=== PATIENT | female | born 1955 | race Caucasian/White ===

== ENCOUNTER 2016-05-13 12:00 | Inpatient (IN) | payer MEDICAID ==
[~2016-05-13] VITALS: Ht 170.2 cm; Wt 82.7 kg
[~2016-05-13 12:00] MED LIST: AML5T PO; ASPI-231 PO; ATOR40TA52 PO; COLCPOW2 PO; DOC100C PO; ENA10T PO; FERR325T PO; LEV100T PO; LEVO-140 PO; MET50T PO; PANT40T PO
[2016-05-13] MEDS ORDERED: SODIUM CHLORIDE 0.9% 1,000 ML IV ONE (12:10)
[2016-05-13] MEDS ORDERED: MORPHINE SULF INJ 2 MG/ML SYRINGE 1ML IV ONE (12:15)
[2016-05-13] MEDS ORDERED: ONDANSETRON HCL 4 MG/2 ML VIAL IV ONE (12:15)
[2016-05-13 12:51] LABS: Basophils # (auto) 0 uL; Basophils % (auto) 0.1 % (0.0-2.0); Eosinophils # (auto) 0 uL; Eosinophils % (auto) 0.3 % (0.0-7.0); Hematocrit 42.1 % (36.0-46.0); Hemoglobin 13.8 g/dL (12.2-16.2); Lymphocytes # (auto) 1.4 uL; Lymphocytes % (auto) 11.7 % (10.0-50.0); Mean Corpuscular Hemoglobin 31.8 pg (28.0-32.0); Mean Corpuscular Hgb Conc. 32.8 g/dL (32.0-36.0); Mean Corpuscular Volume 96.8 fL (80.0-100.0); Mean Platelet Volume 8.4 fL (7.4-10.4); Monocytes # (auto) 0.7 uL; Monocytes % (auto) 5.4 % (0.0-12.0); Neutrophils # (auto) 10.2 uL; Neutrophils % (auto) 82.5 % (37.0-80.0); Platelet Count (auto) 235 10^3/uL (140-450); Red Cell Distribution Width 13.7 % (11.6-16.0); White Blood Cell 12.3 10^3/uL (4.4-10.8)
[2016-05-13] MEDS ORDERED: HYDROmorphone HCL 2 MG/ML VL IV ONE (13:00)
[2016-05-13 13:04] LABS: Albumin 4.2 g/dL (3.4-5.0); BUN/Creatinine Ratio 19.5; Bilirubin, Total 0.4 mg/dL (0.2-1.0); Calcium 11.4 mg/dL (8.5-10.1); INR 0.97 (0.9-1.15); Magnesium 1.8 mg/dL (1.6-2.6); Partial Thromboplastin Time 22.9 sec (22.64-33.71); Potassium 4.6 mmol/L (3.5-5.1); Total Protein 7.7 g/dL (6.4-8.2)
[2016-05-13 13:10] LABS: B-Type Natriuretic Peptide 27.07 pg/mL (0-100)
[2016-05-13] MEDS ORDERED: HYDROcodone-ACET 5/325MG TAB PO PRN (13:15)
[2016-05-13] MEDS ORDERED: TEMAZEPAM 15 MG CAP PO PRN (13:15)
[2016-05-13] MEDS ORDERED: ACETAMINOPHEN 500 MG TAB PO PRN (13:15)
[2016-05-13] MEDS ORDERED: NITROGLYCERIN 0.4 MG SL TAB SL PRN (13:15)
[2016-05-13] MEDS ORDERED: LACTULOSE 20Gm/30ML SOLN PO PRN (13:15)
[2016-05-13] MEDS ORDERED: ENOXAPARIN SOD 40 MG/0.4 ML SYRINGE SC ONE (13:30)
[2016-05-13] MEDS ORDERED: ENALAPRIL MALEATE 10 MG TAB PO ONE (13:30)
[2016-05-13] MEDS ORDERED: NITROGLYCERIN 0.2MG/HR TOPICAL PATCH TD ONE (13:30)
[2016-05-13] MEDS ORDERED: ASPirin 81 mg TAB PO ONE (13:30)
[2016-05-13 13:38] LABS: Temperature: 22.5 C (20.0-25.0)
[2016-05-13] MEDS: LORazepam 0.5 MG TAB PO PRN (14:26)
[2016-05-13 16:00] VITALS: BP 110/68
[2016-05-13] MEDS: HYDROmorphone HCL 2 MG/ML VL IV PRN ×2 (17:21→21:55)
[2016-05-13] MEDS: ATORVASTATIN 20 MG TAB PO SCH (21:54)
[2016-05-13] MEDS: METOPROLOL TARTRATE 25 MG TAB PO SCH (21:54)
[2016-05-13] MEDS: PROMETHAZINE HCL 25 MG/ML 1ML IV PRN (21:55)
[2016-05-14] MEDS: LORazepam 0.5 MG TAB PO PRN ×3 (00:32→21:39)
[2016-05-14 04:38] VITALS: BP 125/87
[2016-05-14 06:03] LABS: Cholesterol 159 mg/dL (<200); HDL Cholesterol 34 mg/dL (40-59); Triglycerides 506 mg/dL (<150)
[2016-05-14] MEDS: PROMETHAZINE HCL 25 MG/ML 1ML IV PRN ×3 (07:03→18:10)
[2016-05-14] MEDS: HYDROmorphone HCL 2 MG/ML VL IV PRN ×3 (07:03→18:09)
[2016-05-14 09:00] VITALS: BP 106/60
[2016-05-14] MEDS: ENOXAPARIN SOD 40 MG/0.4 ML SYRINGE SC SCH (09:22)
[2016-05-14] MEDS: METOPROLOL TARTRATE 25 MG TAB PO SCH ×2 (09:22→21:39)
[2016-05-14] MEDS: ENALAPRIL MALEATE 10 MG TAB PO SCH (09:23)
[2016-05-14] MEDS: NITROGLYCERIN 0.2MG/HR TOPICAL PATCH TD SCH (09:23)
[2016-05-14] MEDS: ASPirin 81 mg TAB PO SCH (09:24)
[2016-05-14 12:50] VITALS: BP 100/60
[2016-05-14] MEDS ORDERED: PANTOPRAZOLE 40 MG TAB PO ONE (13:15)
[2016-05-14] MEDS: SODIUM CHLORIDE 0.9% 1,000 ML IV SCH (13:36)
[2016-05-14 17:00] VITALS: BP 123/69
[2016-05-14] MEDS: ATORVASTATIN 20 MG TAB PO SCH (21:39)
[2016-05-14 22:00] VITALS: BP 192/98
[2016-05-15] MEDS: PROMETHAZINE HCL 25 MG/ML 1ML IV PRN ×2 (02:42→21:20)
[2016-05-15] MEDS: HYDROmorphone HCL 2 MG/ML VL IV PRN ×5 (02:43→20:12)
[2016-05-15] MEDS: SODIUM CHLORIDE 0.9% 1,000 ML IV SCH ×2 (02:43→11:08)
[2016-05-15 05:14] LABS: Basophils # (auto) 0 uL; Basophils % (auto) 0.1 % (0.0-2.0); Eosinophils # (auto) 0.1 uL; Eosinophils % (auto) 2.4 % (0.0-7.0); Hematocrit 30.7 % (36.0-46.0); Hemoglobin 10.3 g/dL (12.2-16.2); Lymphocytes % (auto) 33.8 % (10.0-50.0); Mean Corpuscular Hemoglobin 32.1 pg (28.0-32.0); Mean Corpuscular Hgb Conc. 33.5 g/dL (32.0-36.0); Mean Corpuscular Volume 95.6 fL (80.0-100.0); Mean Platelet Volume 8.1 fL (7.4-10.4); Monocytes # (auto) 0.7 uL; Monocytes % (auto) 11.7 % (0.0-12.0); Platelet Count (auto) 189 10^3/uL (140-450); Red Cell Distribution Width 13.1 % (11.6-16.0); White Blood Cell 5.9 10^3/uL (4.4-10.8)
[2016-05-15 05:23] VITALS: BP 120/66
[2016-05-15 05:33] LABS: Calcium 10.1 mg/dL (8.5-10.1); Potassium 4.6 mmol/L (3.5-5.1)
[2016-05-15 05:40] LABS: BUN/Creatinine Ratio 25.2; Magnesium 1.6 mg/dL (1.6-2.6)
[2016-05-15] MEDS ORDERED: LEVOTHYROXINE SODIUM 50 MCG TAB PO SCH (07:00)
[2016-05-15] MEDS: METOPROLOL TARTRATE 25 MG TAB PO SCH ×2 (08:43→21:16)
[2016-05-15] MEDS: ENALAPRIL MALEATE 10 MG TAB PO SCH ×2 (08:43→21:17)
[2016-05-15] MEDS: NITROGLYCERIN 0.2MG/HR TOPICAL PATCH TD SCH (08:44)
[2016-05-15] MEDS ORDERED: NITROGLYCERIN 0.4 MG SL TAB SL ONE (08:56)
[2016-05-15 09:07] VITALS: BP 123/65
[2016-05-15] MEDS ORDERED: MORPHINE SULF INJ 2 MG/ML SYRINGE 1ML IV PRN ×2 (09:15→14:45)
[2016-05-15] MEDS ORDERED: NITROGLYCERIN 0.4 MG SL TAB SL PRN (09:15)
[2016-05-15] MEDS: ASPirin 81 mg TAB PO SCH (10:30)
[2016-05-15] MEDS: ENOXAPARIN SOD 40 MG/0.4 ML SYRINGE SC SCH (10:30)
[2016-05-15] MEDS: PANTOPRAZOLE 40 MG TAB PO SCH (10:31)
[2016-05-15] MEDS ORDERED: MAGNESIUM SULFATE 1GM/100ML 100 ML IV ONE (11:15)
[2016-05-15 12:40] VITALS: BP 124/79
[2016-05-15] MEDS ORDERED: MORPHINE SULF INJ 2 MG/ML SYRINGE 1ML ONE (14:37)
[2016-05-15] MEDS: FERROUS SULFATE 325 MG TAB PO SCH ×2 (16:09→17:44)
[2016-05-15 16:49] VITALS: BP 138/81
[2016-05-15] MEDS: LORazepam 0.5 MG TAB PO PRN (20:12)
[2016-05-15 21:22] VITALS: BP 142/84
[2016-05-15] MEDS ORDERED: ATORVASTATIN 20 MG TAB PO SCH (22:00)
[2016-05-16] MEDS: HYDROmorphone HCL 2 MG/ML VL IV PRN ×3 (00:52→09:55)
[2016-05-16] MEDS: LORazepam 0.5 MG TAB PO PRN (04:03)
[2016-05-16 04:11] VITALS: BP 159/89
[2016-05-16] MEDS: SODIUM CHLORIDE 0.9% 1,000 ML IV SCH (05:04)
[2016-05-16] MEDS: PROMETHAZINE HCL 25 MG/ML 1ML IV PRN (05:05)
[2016-05-16 06:47] LABS: Hematocrit 31.2 % (36.0-46.0); Hemoglobin 10.5 g/dL (12.2-16.2)
[2016-05-16] MEDS ORDERED: LEVOTHYROXINE SODIUM 50 MCG TAB PO SCH (07:00)
[2016-05-16 07:08] LABS: BUN/Creatinine Ratio 26.6; Calcium 9.6 mg/dL (8.5-10.1); Magnesium 1.7 mg/dL (1.6-2.6); Potassium 4.2 mmol/L (3.5-5.1)
[2016-05-16] MEDS: FERROUS SULFATE 325 MG TAB PO SCH (08:00)
[2016-05-16 08:20] VITALS: BP 144/75
[2016-05-16] MEDS: NITROGLYCERIN 0.2MG/HR TOPICAL PATCH TD SCH (09:54)
[2016-05-16] MEDS: METOPROLOL TARTRATE 25 MG TAB PO SCH (09:55)
[2016-05-16] MEDS: ASPirin 81 mg TAB PO SCH (09:55)
[2016-05-16] MEDS: ENOXAPARIN SOD 40 MG/0.4 ML SYRINGE SC SCH (09:55)
[2016-05-16] MEDS: PANTOPRAZOLE 40 MG TAB PO SCH (09:55)
[2016-05-16] MEDS: ENALAPRIL MALEATE 10 MG TAB PO SCH (09:55)
[2016-05-16] MEDS ORDERED: MAGNESIUM SULFATE 1GM/100ML 100 ML IV ONE (12:30)
[2016-05-16] MEDS ORDERED: LEV50T PO (12:34)
[2016-05-16] MEDS ORDERED: [UNRECOGNIZED DRUG - CODE] TD (12:34)
[2016-05-16 13:00] VITALS: BP 112/56
== END 2016-05-16 16:15 | disposition home health service (06) | DRG 198 ==
LOC: EDBD 12:00 → ER 12:03 → TELE 12:04 → TELE-EAST 15:39
PROVIDERS: ADMIT Internal Medicine; ATTEND Internal Medicine
DX: I25.110 Atherosclerotic heart disease of native coronary artery with unstable angina pectoris (principal); N17.0 Acute kidney failure with tubular necrosis; I13.0 Hypertensive heart and chronic kidney disease with heart failure and stage 1 through stage 4 chronic kidney disease, or unspecified chronic kidney disease; I50.32 Chronic diastolic (congestive) heart failure; N18.3 Chronic kidney disease, stage 3 (moderate); I16.1 Hypertensive emergency; E03.9 Hypothyroidism, unspecified; N18.9 Chronic kidney disease, unspecified; M81.0 Age-related osteoporosis without current pathological fracture; E78.5 Hyperlipidemia, unspecified; E83.52 Hypercalcemia; D72.829 Elevated white blood cell count, unspecified; J45.909 Unspecified asthma, uncomplicated; K29.60 Other gastritis without bleeding; Z77.22 Contact with and (suspected) exposure to environmental tobacco smoke (acute) (chronic); Z90.89 Acquired absence of other organs; I25.2 Old myocardial infarction; Z88.6 Allergy status to analgesic agent; Z82.49 Family history of ischemic heart disease and other diseases of the circulatory system; Z95.1 Presence of aortocoronary bypass graft; Z84.89 Family history of other specified conditions
CPT/HCPCS: 36415; 71010; 80048; 80053; 80061; 82550; 82962; 83735; 83880; 84443; 84484; 85014; 85018; 85025; 85049; 85379; 85610; 85652; 85730; 86141; 93005; 94761; 96361; 96372; 96374; 96375; G0434; J2405

== ENCOUNTER 2016-07-13 21:14 | Inpatient (IN) | payer MEDICAID ==
[~2016-07-13] VITALS: Ht 170.2 cm; Wt 82.1 kg
[~2016-07-13 21:14] MED LIST changes: -ASPI-231 PO; -LEV100T PO; +LEV50T PO; -LEVO-140 PO; +[UNRECOGNIZED DRUG - CODE] TD
[2016-07-13 22:14] LABS: Basophils # (auto) 0 uL; Basophils % (auto) 0.3 % (0.0-2.0); Eosinophils # (auto) 0.2 uL; Hematocrit 36.3 % (36.0-46.0); Hemoglobin 12.2 g/dL (12.2-16.2); Lymphocytes # (auto) 1.6 uL; Lymphocytes % (auto) 18.9 % (10.0-50.0); Mean Corpuscular Hemoglobin 32.7 pg (28.0-32.0); Mean Corpuscular Hgb Conc. 33.6 g/dL (32.0-36.0); Mean Corpuscular Volume 97.3 fL (80.0-100.0); Monocytes # (auto) 0.6 uL; Monocytes % (auto) 6.6 % (0.0-12.0); Neutrophils # (auto) 6.2 uL; Neutrophils % (auto) 72.2 % (37.0-80.0); Platelet Count (auto) 289 10^3/uL (140-450); Red Cell Distribution Width 13.7 % (11.6-16.0); White Blood Cell 8.5 10^3/uL (4.4-10.8)
[2016-07-13 22:34] LABS: Albumin 3.6 g/dL (3.4-5.0); Calcium 10.4 mg/dL (8.5-10.1); Potassium 4.7 mmol/L (3.5-5.1)
[2016-07-13 22:38] LABS: Bilirubin, Total 0.2 mg/dL (0.2-1.0); Total Protein 7.2 g/dL (6.4-8.2)
[2016-07-13 22:41] LABS: B-Type Natriuretic Peptide 29.42 pg/mL (0-100); Temperature: 23.5 C (20.0-25.0)
[2016-07-14] MEDS ORDERED: ONDANSETRON HCL 4 MG/2 ML VIAL IV ONE (00:30)
[2016-07-14] MEDS ORDERED: MORPHINE SULFATE 4 MG/ML SYRG IV ONE (00:30)
[2016-07-14] MEDS ORDERED: ENOXAPARIN SOD 80 MG/0.8ML SYRINGE SC ONE (00:30)
[2016-07-14] MEDS ORDERED: NITROGLYCERIN 2% OINT 1GM PKG TD ONE (00:30)
[2016-07-14] MEDS ORDERED: LORazepam 2MG/ML-1ML VIAL IV ONE (02:00)
[2016-07-14 03:16] LABS: INR 0.95 (0.9-1.15); Prothrombin Time 9.8 sec (9.37-12.3)
[2016-07-14] MEDS ORDERED: ISOS60TA24 PO (04:09)
[2016-07-14] MEDS ORDERED: LORazepam 0.5 MG TAB PO ONE (04:30)
[2016-07-14] MEDS ORDERED: TEMAZEPAM 15 MG CAP PO PRN (05:45)
[2016-07-14] MEDS ORDERED: ONDANSETRON HCL 4 MG/2 ML VIAL IV PRN (05:45)
[2016-07-14] MEDS ORDERED: NITROGLYCERIN 0.4 MG SL TAB SL PRN (05:45)
[2016-07-14] MEDS ORDERED: HYDROcodone-ACET 5/325MG TAB PO PRN (05:45)
[2016-07-14] MEDS ORDERED: ACETAMINOPHEN 325 MG TAB PO PRN (05:45)
[2016-07-14] MEDS ORDERED: CLOPIDOGREL BISULFATE 75 MG TAB PO ONE (05:45)
[2016-07-14] MEDS: MORPHINE SULF INJ 2 MG/ML SYRINGE 1ML IV PRN ×5 (06:34→20:32)
[2016-07-14] MEDS: LEVOTHYROXINE SODIUM 50 MCG TAB PO SCH (07:20)
[2016-07-14 09:00] VITALS: BP 157/95
[2016-07-14] MEDS: METOPROLOL TARTRATE 50 MG TAB PO SCH ×2 (10:00→22:06)
[2016-07-14] MEDS ORDERED: ENOXAPARIN SOD 80 MG/0.8ML SYRINGE SC SCH (10:00)
[2016-07-14] MEDS ORDERED: METOPROLOL TARTRATE 25 MG TAB PO SCH (10:00)
[2016-07-14] MEDS: ASPirin 81 mg TAB PO SCH (10:01)
[2016-07-14] MEDS: ISOSORBIDE MONONITRATE 60 MG TAB PO SCH (10:01)
[2016-07-14] MEDS: ENALAPRIL MALEATE 10 MG TAB PO SCH (10:02)
[2016-07-14] MEDS: CLOPIDOGREL BISULFATE 75 MG TAB PO SCH (10:02)
[2016-07-14] MEDS: amLODIPine BESYLATE 5 MG TAB PO SCH (10:03)
[2016-07-14] MEDS: PANTOPRAZOLE 40 MG TAB PO SCH (10:03)
[2016-07-14 12:37] VITALS: BP 157/98
[2016-07-14 13:00] VITALS: BP 152/87
[2016-07-14 17:00] VITALS: BP 133/71
[2016-07-14] MEDS: LORazepam 0.5 MG TAB PO PRN (18:08)
[2016-07-14 20:20] VITALS: BP 116/77
[2016-07-14] MEDS ORDERED: ATORVASTATIN 20 MG TAB PO SCH (22:00)
[2016-07-14 22:17] VITALS: BP 116/77
[2016-07-14] MEDS: HYDROcodone-ACET 10/325MG TAB PO PRN (23:54)
[2016-07-15] MEDS: MORPHINE SULF INJ 2 MG/ML SYRINGE 1ML IV PRN ×3 (02:07→10:58)
[2016-07-15] MEDS: HYDROcodone-ACET 10/325MG TAB PO PRN ×2 (04:27→14:01)
[2016-07-15 05:04] LABS: Basophils # (auto) 0 uL; Basophils % (auto) 0.2 % (0.0-2.0); Eosinophils # (auto) 0.2 uL; Eosinophils % (auto) 1.8 % (0.0-7.0); Hematocrit 36.1 % (36.0-46.0); Hemoglobin 12.2 g/dL (12.2-16.2); Lymphocytes # (auto) 1.7 uL; Lymphocytes % (auto) 19.1 % (10.0-50.0); Mean Corpuscular Hemoglobin 32.6 pg (28.0-32.0); Mean Corpuscular Hgb Conc. 33.7 g/dL (32.0-36.0); Mean Corpuscular Volume 96.8 fL (80.0-100.0); Monocytes # (auto) 0.8 uL; Monocytes % (auto) 9.5 % (0.0-12.0); Neutrophils % (auto) 69.4 % (37.0-80.0); Platelet Count (auto) 302 10^3/uL (140-450); Red Cell Distribution Width 13.4 % (11.6-16.0); White Blood Cell 8.7 10^3/uL (4.4-10.8)
[2016-07-15 05:10] VITALS: BP 131/82
[2016-07-15 05:17] LABS: Albumin 3.5 g/dL (3.4-5.0); Calcium 10.3 mg/dL (8.5-10.1); Potassium 4.4 mmol/L (3.5-5.1)
[2016-07-15 05:20] LABS: Bilirubin, Total 0.2 mg/dL (0.2-1.0); Total Protein 6.9 g/dL (6.4-8.2)
[2016-07-15] MEDS: LEVOTHYROXINE SODIUM 50 MCG TAB PO SCH (06:38)
[2016-07-15] MEDS: LORazepam 0.5 MG TAB PO PRN (08:14)
[2016-07-15 09:00] VITALS: BP 123/65
[2016-07-15] MEDS: PANTOPRAZOLE 40 MG TAB PO SCH (09:51)
[2016-07-15] MEDS: ISOSORBIDE MONONITRATE 60 MG TAB PO SCH (09:51)
[2016-07-15] MEDS: CLOPIDOGREL BISULFATE 75 MG TAB PO SCH (09:51)
[2016-07-15] MEDS: amLODIPine BESYLATE 5 MG TAB PO SCH (09:52)
[2016-07-15] MEDS: METOPROLOL TARTRATE 50 MG TAB PO SCH (09:52)
[2016-07-15] MEDS: ENALAPRIL MALEATE 10 MG TAB PO SCH (09:53)
[2016-07-15] MEDS: ASPirin 81 mg TAB PO SCH (09:56)
[2016-07-15] MEDS ORDERED: ENOXAPARIN SOD 40 MG/0.4 ML SYRINGE SC SCH (10:00)
[2016-07-15 13:00] VITALS: BP 122/80
[2016-07-15 13:20] VITALS: BP 122/80
== END 2016-07-15 14:30 | disposition home or self-care (01) | DRG 206 ==
LOC: ER 22:07 → TELE 22:08 → TELE-WESTW 07-14 08:27
PROVIDERS: ADMIT Nurse Practitioner; ATTEND Nurse Practitioner
DX: T82.898A Other specified complication of vascular prosthetic devices, implants and grafts, initial encounter (principal); I13.0 Hypertensive heart and chronic kidney disease with heart failure and stage 1 through stage 4 chronic kidney disease, or unspecified chronic kidney disease; I50.9 Heart failure, unspecified; I25.82 Chronic total occlusion of coronary artery; F17.200 Nicotine dependence, unspecified, uncomplicated; I25.10 Atherosclerotic heart disease of native coronary artery without angina pectoris; Y83.2 Surgical operation with anastomosis, bypass or graft as the cause of abnormal reaction of the patient, or of later complication, without mention of misadventure at the time of the procedure; Z82.49 Family history of ischemic heart disease and other diseases of the circulatory system; J45.909 Unspecified asthma, uncomplicated; I25.2 Old myocardial infarction; N18.9 Chronic kidney disease, unspecified; Z85.9 Personal history of malignant neoplasm, unspecified; Z90.89 Acquired absence of other organs; Z84.89 Family history of other specified conditions; Z83.49 Family history of other endocrine, nutritional and metabolic diseases
CPT/HCPCS: 36415; 71010; 80053; 83880; 84484; 85025; 85379; 85610; 85730; 87081; 93005; 96372; 96374; 96375; 96376; J2405

== ENCOUNTER 2016-09-06 19:30 | Inpatient (IN) | payer MEDICAID ==
[~2016-09-06] VITALS: Ht 165.1 cm; Wt 83.3 kg
[~2016-09-06 19:30] MED LIST changes: +ISOS60TA24 PO
[2016-09-06] MEDS ORDERED: ONDANSETRON HCL 4 MG/2 ML VIAL IV ONE ×2 (20:15→22:45)
[2016-09-06] MEDS ORDERED: MORPHINE SULF INJ 2 MG/ML SYRINGE 1ML IV ONE ×2 (20:15→22:45)
[2016-09-06 21:03] LABS: Basophils # (auto) 0 uL; Basophils % (auto) 0.3 % (0.0-2.0); Eosinophils # (auto) 0.2 uL; Eosinophils % (auto) 1.4 % (0.0-7.0); Hematocrit 37.2 % (36.0-46.0); Hemoglobin 12.3 g/dL (12.2-16.2); Lymphocytes # (auto) 1.2 uL; Lymphocytes % (auto) 10.7 % (10.0-50.0); Mean Corpuscular Hemoglobin 32.8 pg (28.0-32.0); Mean Corpuscular Volume 99.5 fL (80.0-100.0); Mean Platelet Volume 8.1 fL (7.4-10.4); Monocytes # (auto) 0.8 uL; Monocytes % (auto) 6.5 % (0.0-12.0); Neutrophils # (auto) 9.4 uL; Neutrophils % (auto) 81.1 % (37.0-80.0); Platelet Count (auto) 337 10^3/uL (140-450); Red Cell Distribution Width 14.1 % (11.6-16.0); White Blood Cell 11.6 10^3/uL (4.4-10.8)
[2016-09-06 21:21] LABS: Prothrombin Time 9.4 sec (9.37-12.3)
[2016-09-06 21:24] LABS: Albumin 3.5 g/dL (3.4-5.0); BUN/Creatinine Ratio 20.9; Bilirubin, Total 0.2 mg/dL (0.2-1.0); Calcium 10.8 mg/dL (8.5-10.1); Magnesium 2.2 mg/dL (1.6-2.6); Total Protein 7.2 g/dL (6.4-8.2)
[2016-09-06 21:36] LABS: INR 0.87 (0.9-1.15)
[2016-09-06 21:50] LABS: B-Type Natriuretic Peptide 17.53 pg/mL (0-100)
[2016-09-06 21:57] LABS: Temperature: 23.7 C (20.0-25.0)
[2016-09-07] VITALS (9 sets, daily range): BP systolic 82–155; BP diastolic 55–89
[2016-09-07] MEDS ORDERED: NITROGLYCERIN 0.4 MG SL TAB SL ONE ×2 (00:10→00:15)
[2016-09-07] MEDS ORDERED: HYDROmorphone HCL 2 MG/ML VL IV ONE (00:30)
[2016-09-07] MEDS ORDERED: ACETAMINOPHEN 325 MG TAB PO PRN (01:00)
[2016-09-07] MEDS ORDERED: FUROSEMIDE 20 MG/2 ML VIAL IV ONE (01:00)
[2016-09-07] MEDS ORDERED: DOCUSATE SOD 100 MG CAP PO PRN (01:00)
[2016-09-07] MEDS ORDERED: ONDANSETRON HCL 4 MG/2 ML VIAL IV PRN (01:00)
[2016-09-07 03:40] LABS: Urine Bilirubin Negative (Negative); Urine Blood Negative /uL (Negative); Urine Color Yellow (Yellow); Urine Glucose Normal (Normal); Urine Ketone Negative (Negative); Urine Nitrite Negative (Negative); Urine RBC <1 /hpf (0 - 4); Urine Squamous Epithelial Cell FEW /hpf (<5); Urine Urobilinogen Normal (Negative); Urine pH 7.5 (5.0-8.0)
[2016-09-07] MEDS: MORPHINE SULF INJ 2 MG/ML SYRINGE 1ML IV PRN ×4 (04:34→22:25)
[2016-09-07] MEDS ORDERED: SODIUM CHLORIDE 0.9% 500 ML IV ONE (05:30)
[2016-09-07] MEDS: SODIUM CHLOR 0.9% PF (SALINE LOCK) 10ML VIAL IV SCH ×3 (05:43→21:26)
[2016-09-07] MEDS ORDERED: FAMOTIDINE 20 MG TAB PO SCH (10:00)
[2016-09-07] MEDS: NITROGLYCERIN 0.2MG/HR TOPICAL PATCH TD SCH (10:00)
[2016-09-07] MEDS: ASPirin 81 mg TAB PO SCH (10:44)
[2016-09-07] MEDS ORDERED: FUROSEMIDE 40 MG TAB PO ONE (18:15)
[2016-09-07] MEDS ORDERED: LEVOTHYROXINE SODIUM 50 MCG TAB PO ONE (18:15)
[2016-09-07] MEDS: ceFAZolin 1GM/50ML D5W 50 ML IV SCH (18:37)
[2016-09-07] MEDS: ATORVASTATIN 20 MG TAB PO SCH (21:20)
[2016-09-07] MEDS: METOPROLOL TARTRATE 25 MG TAB PO SCH (21:21)
[2016-09-07] MEDS ORDERED: ceFAZolin 1GM/50ML D5W 50 ML IV SCH (22:00)
[2016-09-08] MEDS: ALBUTEROL SULF 2.5 MG/0.5ML(0.5%) NEB SOLN NEB SCH ×4 (00:10→18:10)
[2016-09-08] MEDS: IPRATROPIUM BROM 0.5 MG/2.5ML INH SOL NEB SCH ×4 (00:10→18:30)
[2016-09-08] MEDS: TEMAZEPAM 15 MG CAP PO PRN ×2 (02:30→23:31)
[2016-09-08] MEDS: MORPHINE SULF INJ 2 MG/ML SYRINGE 1ML IV PRN ×4 (02:31→17:13)
[2016-09-08 05:00] VITALS: BP 111/69
[2016-09-08] MEDS: SODIUM CHLOR 0.9% PF (SALINE LOCK) 10ML VIAL IV SCH ×3 (05:43→22:18)
[2016-09-08] MEDS: ceFAZolin 1GM/50ML D5W 50 ML IV SCH ×2 (06:05→18:48)
[2016-09-08] MEDS: LEVOTHYROXINE SODIUM 50 MCG TAB PO SCH (06:35)
[2016-09-08 07:17] LABS: Albumin 3.3 g/dL (3.4-5.0); Calcium 10.1 mg/dL (8.5-10.1); Potassium 4.3 mmol/L (3.5-5.1)
[2016-09-08 07:20] LABS: Bilirubin, Total 0.5 mg/dL (0.2-1.0); Total Protein 6.5 g/dL (6.4-8.2)
[2016-09-08 07:29] LABS: Basophils # (auto) 0 uL; Basophils % (auto) 0.2 % (0.0-2.0); Eosinophils # (auto) 0.2 uL; Hematocrit 33.5 % (36.0-46.0); Hemoglobin 11.5 g/dL (12.2-16.2); Lymphocytes # (auto) 1.2 uL; Lymphocytes % (auto) 12.1 % (10.0-50.0); Mean Corpuscular Hemoglobin 33.7 pg (28.0-32.0); Mean Corpuscular Hgb Conc. 34.2 g/dL (32.0-36.0); Mean Corpuscular Volume 98.4 fL (80.0-100.0); Mean Platelet Volume 8.2 fL (7.4-10.4); Monocytes % (auto) 10.3 % (0.0-12.0); Neutrophils # (auto) 7.7 uL; Neutrophils % (auto) 75.4 % (37.0-80.0); Platelet Count (auto) 250 10^3/uL (140-450); Red Cell Distribution Width 12.3 % (11.6-16.0); SUSPECT VIEW TRANSMISSION; White Blood Cell 10.1 10^3/uL (4.4-10.8)
[2016-09-08 08:00] VITALS: BP 117/64
[2016-09-08 08:08] LABS: B-Type Natriuretic Peptide 26.43 pg/mL (0-100); Temperature: 23.3 C (20.0-25.0)
[2016-09-08 09:00] VITALS: BP 120/93
[2016-09-08] MEDS: METOPROLOL TARTRATE 25 MG TAB PO SCH ×2 (09:36→22:21)
[2016-09-08] MEDS: FAMOTIDINE 20 MG TAB PO SCH (09:37)
[2016-09-08] MEDS: ASPirin 81 mg TAB PO SCH (09:37)
[2016-09-08] MEDS: NITROGLYCERIN 0.2MG/HR TOPICAL PATCH TD SCH (09:38)
[2016-09-08] MEDS ORDERED: NITROGLYCERIN 0.4MG/HR TOPICAL PATCH TD SCH (10:00)
[2016-09-08 13:00] VITALS: BP 132/76
[2016-09-08] MEDS: FUROSEMIDE 40 MG TAB PO SCH (15:22)
[2016-09-08 16:48] VITALS: BP 133/75
[2016-09-08] MEDS ORDERED: methylPREDNISolone SOD SUCC 40 MG/ML VL IV ONE (19:30)
[2016-09-08 22:09] VITALS: BP 128/71
[2016-09-08] MEDS: methylPREDNISolone SOD SUCC 40 MG/ML VL IV SCH (22:19)
[2016-09-08] MEDS: ATORVASTATIN 20 MG TAB PO SCH (22:22)
[2016-09-08] MEDS: DOXYCYCLINE 100 MG TAB/CAP PO SCH (22:22)
[2016-09-09] VITALS (7 sets, daily range): BP systolic 101–155; BP diastolic 69–87
[2016-09-09] MEDS: SODIUM CHLOR 0.9% PF (SALINE LOCK) 10ML VIAL IV SCH ×3 (05:31→21:15)
[2016-09-09] MEDS: HYDROcodone-ACET 7.5/325MG TAB PO PRN ×3 (05:34→20:06)
[2016-09-09] MEDS: LEVOTHYROXINE SODIUM 50 MCG TAB PO SCH (06:43)
[2016-09-09] MEDS: METOPROLOL TARTRATE 25 MG TAB PO SCH ×2 (10:00→21:18)
[2016-09-09] MEDS: methylPREDNISolone SOD SUCC 40 MG/ML VL IV SCH ×2 (10:21→21:15)
[2016-09-09] MEDS: ASPirin 81 mg TAB PO SCH (10:22)
[2016-09-09] MEDS: NITROGLYCERIN 0.2MG/HR TOPICAL PATCH TD SCH (10:23)
[2016-09-09] MEDS: DOXYCYCLINE 100 MG TAB/CAP PO SCH ×2 (10:23→21:15)
[2016-09-09] MEDS: FAMOTIDINE 20 MG TAB PO SCH (10:23)
[2016-09-09] MEDS ORDERED: ALPRAZolam 0.25 MG TAB PO ONE (13:15)
[2016-09-09] MEDS: NITROGLYCERIN 0.4 MG SL TAB SL PRN ×4 (16:29→18:37)
[2016-09-09] MEDS: FUROSEMIDE 40 MG TAB PO SCH (16:50)
[2016-09-09] MEDS: MORPHINE SULF INJ 2 MG/ML SYRINGE 1ML IV PRN (20:27)
[2016-09-09] MEDS: ATORVASTATIN 20 MG TAB PO SCH (21:15)
[2016-09-09] MEDS: ENOXAPARIN SOD 60 MG/0.6 ML SYRINGE SC SCH (21:15)
[2016-09-09] MEDS: TEMAZEPAM 15 MG CAP PO PRN (22:53)
[2016-09-10] MEDS: NITROGLYCERIN 0.4 MG SL TAB SL PRN ×2 (02:51→03:00)
[2016-09-10] MEDS: MORPHINE SULF INJ 2 MG/ML SYRINGE 1ML IV PRN ×2 (03:04→11:14)
[2016-09-10 05:00] VITALS: BP 115/72
[2016-09-10] MEDS: HYDROcodone-ACET 7.5/325MG TAB PO PRN ×2 (05:28→13:21)
[2016-09-10] MEDS: SODIUM CHLOR 0.9% PF (SALINE LOCK) 10ML VIAL IV SCH ×2 (05:29→14:00)
[2016-09-10] MEDS: LEVOTHYROXINE SODIUM 50 MCG TAB PO SCH (06:13)
[2016-09-10 06:31] LABS: Basophils # (auto) 0 uL; Eosinophils # (auto) 0 uL; Hematocrit 33.4 % (36.0-46.0); Hemoglobin 11.5 g/dL (12.2-16.2); Lymphocytes # (auto) 1.4 uL; Lymphocytes % (auto) 7.4 % (10.0-50.0); Mean Corpuscular Hemoglobin 33.9 pg (28.0-32.0); Mean Corpuscular Hgb Conc. 34.4 g/dL (32.0-36.0); Mean Corpuscular Volume 98.5 fL (80.0-100.0); Mean Platelet Volume 8.4 fL (7.4-10.4); Monocytes # (auto) 0.6 uL; Monocytes % (auto) 3.2 % (0.0-12.0); Neutrophils # (auto) 17.1 uL; Neutrophils % (auto) 89.4 % (37.0-80.0); Platelet Count (auto) 353 10^3/uL (140-450); Red Cell Distribution Width 13.3 % (11.6-16.0); White Blood Cell 19.1 10^3/uL (4.4-10.8)
[2016-09-10 07:04] LABS: BUN/Creatinine Ratio 31.5; Calcium 11.2 mg/dL (8.5-10.1); Potassium 4.5 mmol/L (3.5-5.1); Uric Acid 10.5 mg/dL (2.6-6.0)
[2016-09-10 07:25] LABS: B-Type Natriuretic Peptide 108.94 pg/mL (0-100); Temperature: 22.7 C (20.0-25.0)
[2016-09-10 07:34] VITALS: BP 121/71
[2016-09-10 08:00] VITALS: BP 179/86
[2016-09-10] MEDS ORDERED: ENOXAPARIN SOD 60 MG/0.6 ML SYRINGE SC SCH (10:00)
[2016-09-10] MEDS: ENOXAPARIN SOD 60 MG/0.6 ML SYRINGE SC SCH (10:54)
[2016-09-10] MEDS: methylPREDNISolone SOD SUCC 40 MG/ML VL IV SCH (10:54)
[2016-09-10] MEDS: NITROGLYCERIN 0.2MG/HR TOPICAL PATCH TD SCH (10:56)
[2016-09-10] MEDS: ASPirin 81 mg TAB PO SCH (10:57)
[2016-09-10] MEDS: DOXYCYCLINE 100 MG TAB/CAP PO SCH (10:57)
[2016-09-10] MEDS: FAMOTIDINE 20 MG TAB PO SCH (10:58)
[2016-09-10] MEDS: METOPROLOL TARTRATE 25 MG TAB PO SCH (10:59)
[2016-09-10 12:27] VITALS: BP 148/78
[2016-09-10 16:02] VITALS: BP 124/71
[2016-09-10 16:35] VITALS: BP 124/71
== END 2016-09-10 17:15 | disposition home or self-care (01) | DRG 194 ==
LOC: ER 19:30 → TELE 19:32 → TELE-CENTR 09-07 03:47
PROVIDERS: ADMIT Emergency Medicine; ATTEND Internal Medicine
DX: I13.0 Hypertensive heart and chronic kidney disease with heart failure and stage 1 through stage 4 chronic kidney disease, or unspecified chronic kidney disease (principal); J44.1 Chronic obstructive pulmonary disease with (acute) exacerbation; N18.3 Chronic kidney disease, stage 3 (moderate); Z95.1 Presence of aortocoronary bypass graft; I50.33 Acute on chronic diastolic (congestive) heart failure; L03.116 Cellulitis of left lower limb; I25.110 Atherosclerotic heart disease of native coronary artery with unstable angina pectoris; D64.9 Anemia, unspecified; M10.9 Gout, unspecified; E78.5 Hyperlipidemia, unspecified; F17.210 Nicotine dependence, cigarettes, uncomplicated; Z82.49 Family history of ischemic heart disease and other diseases of the circulatory system; Z85.9 Personal history of malignant neoplasm, unspecified; Z83.3 Family history of diabetes mellitus; Z90.89 Acquired absence of other organs
CPT/HCPCS: 36415; 71010; 80048; 80053; 80307; 81001; 83735; 83880; 83970; 84443; 84484; 84550; 85025; 85379; 85610; 85730; 93005; 93306; 94640; 94761; 96372; 96374; 96375; 96376; J0690; J2405

== ENCOUNTER 2017-01-08 17:06 | Inpatient (IN) | payer MEDICAID ==
[~2017-01-08] VITALS: Ht 170.2 cm; Wt 85.3 kg
[2017-01-08 21:32] LABS: Basophils # (auto) 0.1 uL; Basophils % (auto) 0.7 % (0.0-2.0); CONDITION Y; DEFINITIVE SEE PRINTOUT; Eosinophils # (auto) 0.4 uL; Eosinophils % (auto) 5.1 % (0.0-7.0); Hemoglobin 12.6 g/dL (12.2-16.2); Lymphocytes # (auto) 1.8 uL; Lymphocytes % (auto) 22.1 % (10.0-50.0); Mean Corpuscular Hemoglobin 35.4 pg (28.0-32.0); Mean Corpuscular Hgb Conc. 33.9 g/dL (32.0-36.0); Mean Corpuscular Volume 104.3 fL (80.0-100.0); Mean Platelet Volume 9.1 fL (7.4-10.4); Monocytes # (auto) 0.4 uL; Monocytes % (auto) 4.5 % (0.0-12.0); Neutrophils # (auto) 5.4 uL; Neutrophils % (auto) 67.6 % (37.0-80.0); Platelet Count (auto) 286 10^3/uL (140-450); Red Cell Distribution Width 15.2 % (11.6-16.0); White Blood Cell 7.9 10^3/uL (4.4-10.8)
[2017-01-08 21:37] LABS: Albumin 3.9 g/dL (3.4-5.0); BUN/Creatinine Ratio 19.7; Calcium 11.6 mg/dL (8.5-10.1); Magnesium 2.1 mg/dL (1.6-2.6); Potassium 4.9 mmol/L (3.5-5.1)
[2017-01-08 21:45] LABS: Bilirubin, Total 0.2 mg/dL (0.2-1.0); Total Protein 7.4 g/dL (6.4-8.2)
[2017-01-08 21:48] LABS: B-Type Natriuretic Peptide 23.12 pg/mL (0-100)
[2017-01-08 22:02] LABS: Macrocytosis Slight; Platelet Estimate Adequate
[2017-01-08 22:54] LABS: Urine Bilirubin Negative (Negative); Urine Blood Negative /uL (Negative); Urine Color Yellow (Yellow); Urine Glucose Normal (Normal); Urine Ketone Negative (Negative); Urine Nitrite Negative (Negative); Urine RBC 1 /hpf (0 - 4); Urine Squamous Epithelial Cell FEW /hpf (<5); Urine Urobilinogen Normal (Negative)
[2017-01-08] MEDS ORDERED: ENOXAPARIN SOD 100 MG/1 ML SYRINGE SC ONE (23:15)
[2017-01-08] MEDS ORDERED: HYDROcodone-ACET 5/325MG TAB PO ONE (23:45)
[2017-01-09] MEDS ORDERED: ONDANSETRON HCL 4 MG/2 ML VIAL IV PRN (00:15)
[2017-01-09] MEDS ORDERED: CLOPIDOGREL BISULFATE 75 MG TAB PO ONE (00:15)
[2017-01-09] MEDS ORDERED: ACETAMINOPHEN 325 MG TAB PO PRN (00:15)
[2017-01-09] MEDS ORDERED: NITROGLYCERIN 0.4 MG SL TAB SL PRN (00:15)
[2017-01-09] MEDS ORDERED: KETOROLAC TROMETH 30 MG/ML 1ML VIAL IV ONE ×2 (05:30)
[2017-01-09] MEDS: LEVOTHYROXINE SODIUM 50 MCG TAB PO SCH (07:22)
[2017-01-09] MEDS ORDERED: METOPROLOL TARTRATE 25 MG TAB PO SCH (10:00)
[2017-01-09] MEDS ORDERED: ASPirin 81 mg TAB PO SCH (10:00)
[2017-01-09] MEDS ORDERED: ENOXAPARIN SOD 80 MG/0.8ML SYRINGE SC SCH (10:00)
[2017-01-09] MEDS: PANTOPRAZOLE 40 MG TAB PO SCH (10:19)
[2017-01-09] MEDS: ISOSORBIDE MONONITRATE 60 MG TAB PO SCH (10:19)
[2017-01-09] MEDS: amLODIPine BESYLATE 5 MG TAB PO SCH (10:19)
[2017-01-09] MEDS: CLOPIDOGREL BISULFATE 75 MG TAB PO SCH (10:19)
[2017-01-09] MEDS: ENALAPRIL MALEATE 10 MG TAB PO SCH ×2 (10:20→22:15)
[2017-01-09 14:00] VITALS: BP 141/92
[2017-01-09] MEDS ORDERED: HYDROmorphone HCL 2 MG/ML VL IV ONE (14:45)
[2017-01-09] MEDS ORDERED: NITROGLYCERIN 0.2MG/HR TOPICAL PATCH TD ONE (14:45)
[2017-01-09 16:57] VITALS: BP 136/71
[2017-01-09] MEDS: HYDROcodone-ACET 5/325MG TAB PO PRN (20:43)
[2017-01-09] MEDS ORDERED: ENOXAPARIN SOD 100 MG/1 ML SYRINGE SC SCH (21:00)
[2017-01-09] MEDS ORDERED: ATORVASTATIN 20 MG TAB PO SCH (22:00)
[2017-01-09 22:21] VITALS: BP 121/74
[2017-01-09] MEDS ORDERED: TEMAZEPAM 15 MG CAP PO ONE (23:00)
[2017-01-10] MEDS: HYDROcodone-ACET 5/325MG TAB PO PRN ×3 (04:42→13:48)
[2017-01-10 04:57] VITALS: BP 118/70
[2017-01-10 06:18] LABS: Basophils # (auto) 0.1 uL; Basophils % (auto) 0.9 % (0.0-2.0); Eosinophils # (auto) 0.3 uL; Hematocrit 35.9 % (36.0-46.0); Hemoglobin 12.2 g/dL (12.2-16.2); Lymphocytes # (auto) 1.4 uL; Lymphocytes % (auto) 22.4 % (10.0-50.0); Mean Corpuscular Hemoglobin 36.1 pg (28.0-32.0); Mean Corpuscular Hgb Conc. 34.1 g/dL (32.0-36.0); Mean Corpuscular Volume 105.7 fL (80.0-100.0); Mean Platelet Volume 8.7 fL (6.9-10.8); Monocytes # (auto) 0.6 uL; Monocytes % (auto) 8.9 % (0.0-12.0); Neutrophils % (auto) 63.8 % (37.0-80.0); Platelet Count (auto) 235 10^3/uL (140-450); Red Cell Distribution Width 14.2 % (11.8-14.3); White Blood Cell 6.3 10^3/uL (4.4-10.8)
[2017-01-10] MEDS: LEVOTHYROXINE SODIUM 50 MCG TAB PO SCH (06:23)
[2017-01-10 06:45] LABS: Albumin 3.6 g/dL (3.4-5.0); BUN/Creatinine Ratio 21.4; Bilirubin, Total 0.4 mg/dL (0.2-1.0); Calcium 11.4 mg/dL (8.5-10.1); Potassium 4.3 mmol/L (3.5-5.1); Total Protein 7.2 g/dL (6.4-8.2)
[2017-01-10] MEDS ORDERED: GEMF600T3 PO (08:33)
[2017-01-10] MEDS ORDERED: HYDR-2651 PO (08:33)
[2017-01-10] MEDS ORDERED: ASPI81TA27 PO ×2 (08:33→12:01)
[2017-01-10 09:29] VITALS: BP 138/75
[2017-01-10] MEDS ORDERED: NITROGLYCERIN 0.2MG/HR TOPICAL PATCH TD SCH (10:00)
[2017-01-10] MEDS ORDERED: ENOXAPARIN SOD 80 MG/0.8ML SYRINGE SC SCH (10:00)
[2017-01-10] MEDS ORDERED: ASPirin 81 mg TAB PO SCH (10:00)
[2017-01-10] MEDS ORDERED: HYDROmorphone HCL 2 MG/ML VL IV ONE (11:00)
[2017-01-10] MEDS: CLOPIDOGREL BISULFATE 75 MG TAB PO SCH (11:05)
[2017-01-10] MEDS: amLODIPine BESYLATE 5 MG TAB PO SCH (11:05)
[2017-01-10] MEDS: PANTOPRAZOLE 40 MG TAB PO SCH (11:06)
[2017-01-10] MEDS: ENALAPRIL MALEATE 10 MG TAB PO SCH (11:06)
[2017-01-10] MEDS: ISOSORBIDE MONONITRATE 60 MG TAB PO SCH (11:07)
[2017-01-10] MEDS ORDERED: PANT40T PO (12:01)
[2017-01-10] MEDS ORDERED: ISOS60TA24 PO (12:01)
[2017-01-10] MEDS ORDERED: ATOR40TA52 PO (12:01)
[2017-01-10] MEDS ORDERED: HYDR-4663 PO (12:01)
[2017-01-10] MEDS ORDERED: ENAL20TA70 PO (12:01)
[2017-01-10] MEDS ORDERED: AML5T PO (12:01)
[2017-01-10] MEDS ORDERED: LEV50T PO (12:01)
[2017-01-10] MEDS ORDERED: [UNRECOGNIZED DRUG - CODE] TD (12:01)
[2017-01-10] MEDS ORDERED: CLOP75TA28 PO (12:04)
[2017-01-10 13:00] VITALS: BP 149/69
[2017-01-10 16:14] VITALS: BP 149/69
[2017-01-10 17:00] VITALS: BP 139/74
== END 2017-01-10 17:55 | disposition home or self-care (01) | DRG 198 ==
LOC: ER 17:06 → EDBD 17:06 → TELE 17:07 → TELE-E-ADS 01-09 09:06 → TELE-CENTR 01-09 14:09
PROVIDERS: ADMIT Nurse Practitioner; ATTEND Internal Medicine
DX: R07.89 Other chest pain (principal); I25.2 Old myocardial infarction; I50.9 Heart failure, unspecified; I13.0 Hypertensive heart and chronic kidney disease with heart failure and stage 1 through stage 4 chronic kidney disease, or unspecified chronic kidney disease; N18.3 Chronic kidney disease, stage 3 (moderate); M10.9 Gout, unspecified; E78.5 Hyperlipidemia, unspecified; F17.210 Nicotine dependence, cigarettes, uncomplicated; E03.9 Hypothyroidism, unspecified; G89.4 Chronic pain syndrome; J44.9 Chronic obstructive pulmonary disease, unspecified; K29.60 Other gastritis without bleeding; E83.52 Hypercalcemia; I25.10 Atherosclerotic heart disease of native coronary artery without angina pectoris; Z95.1 Presence of aortocoronary bypass graft; Z83.3 Family history of diabetes mellitus; Z82.49 Family history of ischemic heart disease and other diseases of the circulatory system; Z88.5 Allergy status to narcotic agent
CPT/HCPCS: 36415; 71010; 78582; 80053; 80061; 81001; 83735; 83880; 84484; 85025; 85379; 93005; 96372; 96374; J1885

== ENCOUNTER 2017-07-31 08:40 | Emergency (ER) | payer MEDICAID ==
[~2017-07-31] VITALS: Ht 170.2 cm; Wt 83.9 kg
[~2017-07-31 08:40] MED LIST changes: +ASPI81TA27 PO; +CLOP75TA28 PO; -ENA10T PO; +ENAL20TA70 PO; +FERR-20 PO; -FERR325T PO; +GEMF600T3 PO; +HYDR-4683 PO; +HYDR25TA35 PO
[2017-07-31 09:30] LABS: Urine Bacteria FEW /hpf (None Seen); Urine Blood Negative /uL (Negative); Urine Specific Gravity 1.017 (1.001-1.035); Urine WBC 36 /hpf (0 - 5)
[2017-07-31 09:39] LABS: Eosinophils # (auto) 0.2 uL; Hemoglobin 12.6 g/dL (12.2-16.2); Lymphocytes # (auto) 1.5 uL; Monocytes # (auto) 0.6 uL; Neutrophils # (auto) 6.7 uL; Nucleated Red Blood Cells % 0.1 %
[2017-07-31 09:41] LABS: Basophils # (auto) 0 uL; Basophils % (auto) 0.5 % (0.0-2.0); Eosinophils % (auto) 2.3 % (0.0-7.0); Hematocrit 36.6 % (36.0-46.0); Lymphocytes % (auto) 16.4 % (10.0-50.0); Mean Corpuscular Hemoglobin 37.4 pg (28.0-32.0); Mean Corpuscular Hgb Conc. 34.5 g/dL (32.0-36.0); Monocytes % (auto) 6.3 % (0.0-12.0); Neutrophils % (auto) 74.5 % (37.0-80.0); Platelet Count (auto) 353 10^3/uL (140-450); Red Blood Cells 3.38 10^6/uL (4.0-5.20); Red Cell Distribution Width 13.7 % (11.8-14.3)
[2017-07-31 09:43] LABS: Mean Corpuscular Volume 108.3 fL (80.0-100.0)
[2017-07-31 09:58] LABS: Albumin 4.4 g/dL (3.4-5.0); Calcium 11.1 mg/dL (8.5-10.1); Potassium 4.3 mmol/L (3.5-5.1)
[2017-07-31 10:00] LABS: BUN/Creatinine Ratio 21.9
[2017-07-31 10:11] LABS: Bilirubin, Total 0.4 mg/dL (0.2-1.0); Total Protein 8.2 g/dL (6.4-8.2)
[2017-07-31] MEDS ORDERED: ALPRAZolam 0.5 MG TAB ONE (12:00)
[2017-07-31] MEDS ORDERED: ALPRAZolam 0.5 MG TAB PO ONE (12:00)
[2017-07-31] MEDS ORDERED: SODIUM CHLORIDE 0.9% 1,000 ML IV ONE (12:01)
[2017-07-31] MEDS ORDERED: cefTRIAXone 1GM/10ml IVPUSH 10 ML IV ONE (12:15)
[2017-07-31] MEDS: MAGNESIUM SULFATE 1GM/100ML 100 ML IV SCH ×2 (13:32→14:21)
[2017-07-31 15:14] VITALS: BP 132/73
== END 2017-07-31 14:34 | disposition home or self-care (01) ==
LOC: ER 08:40
DX: F41.1 Generalized anxiety disorder (principal); R79.89 Other specified abnormal findings of blood chemistry; E83.52 Hypercalcemia; E83.42 Hypomagnesemia; N39.0 Urinary tract infection, site not specified; I13.0 Hypertensive heart and chronic kidney disease with heart failure and stage 1 through stage 4 chronic kidney disease, or unspecified chronic kidney disease; N18.9 Chronic kidney disease, unspecified; I50.9 Heart failure, unspecified; E07.89 Other specified disorders of thyroid; I25.2 Old myocardial infarction; F17.210 Nicotine dependence, cigarettes, uncomplicated; Z86.73 Personal history of transient ischemic attack (TIA), and cerebral infarction without residual deficits; Z95.1 Presence of aortocoronary bypass graft; Z90.89 Acquired absence of other organs
CPT/HCPCS: 36415; 71046; 80053; 81001; 83735; 84443; 84484; 85025; 93005; 94761; 96361; 96365; 96375; 99285; J3475; J7030

== ENCOUNTER 2017-08-02 21:55 | Emergency (ER) | payer MEDICAID ==
[~2017-08-02] VITALS: Ht 170.2 cm; Wt 83.9 kg
[2017-08-03] MEDS ORDERED: ALPRAZolam 0.5 MG TAB PO ONE
[2017-08-03 01:10] LABS: Basophils # (auto) 0.1 uL; Eosinophils # (auto) 0.3 uL; Hemoglobin 13.3 g/dL (12.2-16.2); Lymphocytes # (auto) 1.8 uL; Monocytes # (auto) 0.8 uL; Nucleated Red Blood Cells % 0.1 %
[2017-08-03 01:13] LABS: Basophils % (auto) 0.9 % (0.0-2.0); Eosinophils % (auto) 3.2 % (0.0-7.0); Hematocrit 39.6 % (36.0-46.0); Lymphocytes % (auto) 19.9 % (10.0-50.0); Mean Corpuscular Hemoglobin 36.3 pg (28.0-32.0); Mean Corpuscular Hgb Conc. 33.6 g/dL (32.0-36.0); Monocytes % (auto) 9.2 % (0.0-12.0); Neutrophils # (auto) 5.9 uL; Neutrophils % (auto) 66.8 % (37.0-80.0); Platelet Count (auto) 339 10^3/uL (140-450); Red Blood Cells 3.66 10^6/uL (4.0-5.20); Red Cell Distribution Width 13.9 % (11.8-14.3); White Blood Cell 8.9 10^3/uL (4.4-10.8)
[2017-08-03 01:29] LABS: Albumin 4.3 g/dL (3.4-5.0); Calcium 11.2 mg/dL (8.5-10.1); Potassium 4.1 mmol/L (3.5-5.1)
[2017-08-03 01:34] LABS: Bilirubin, Total 0.3 mg/dL (0.2-1.0)
[2017-08-03 04:30] VITALS: BP 105/80
== END 2017-08-03 03:50 | disposition home or self-care (01) ==
LOC: EDBD 21:55 → ER 21:55
DX: F41.9 Anxiety disorder, unspecified (principal); N28.9 Disorder of kidney and ureter, unspecified; I25.810 Atherosclerosis of coronary artery bypass graft(s) without angina pectoris; I13.0 Hypertensive heart and chronic kidney disease with heart failure and stage 1 through stage 4 chronic kidney disease, or unspecified chronic kidney disease; I50.9 Heart failure, unspecified; N18.9 Chronic kidney disease, unspecified; K21.9 Gastro-esophageal reflux disease without esophagitis; M10.9 Gout, unspecified; E78.5 Hyperlipidemia, unspecified; I25.2 Old myocardial infarction; E07.9 Disorder of thyroid, unspecified; F17.210 Nicotine dependence, cigarettes, uncomplicated; Z95.1 Presence of aortocoronary bypass graft
CPT/HCPCS: 36415; 80053; 85025

== ENCOUNTER 2017-10-15 10:35 | Inpatient (IN) | payer MEDICAID, OTHER ==
[~2017-10-15] VITALS: Ht 170.2 cm; Wt 78.0 kg
[2017-10-15 11:22] LABS: Basophils # (auto) 0 uL; Eosinophils # (auto) 0.1 uL; Eosinophils % (auto) 1.9 % (0.0-7.0); Hemoglobin 11.4 g/dL (12.2-16.2); Lymphocytes # (auto) 1.5 uL; Mean Corpuscular Volume 106.7 fL (80.0-100.0); Monocytes # (auto) 0.7 uL; Nucleated Red Blood Cells % 0.1 %; Platelet Count (auto) 199 10^3/uL (140-450)
[2017-10-15 11:23] LABS: Basophils % (auto) 0.6 % (0.0-2.0); Hematocrit 34.8 % (36.0-46.0); Lymphocytes % (auto) 21.5 % (10.0-50.0); Mean Corpuscular Hgb Conc. 32.8 g/dL (32.0-36.0); Monocytes % (auto) 10.5 % (0.0-12.0); Neutrophils # (auto) 4.6 uL; Neutrophils % (auto) 65.5 % (37.0-80.0); Red Blood Cells 3.26 10^6/uL (4.0-5.20); Red Cell Distribution Width 13.5 % (11.8-14.3)
[2017-10-15 11:32] LABS: INR 0.96 (0.9-1.15); Prothrombin Time 10.3 sec (9.27-12.13)
[2017-10-15 11:47] LABS: Albumin 3.3 g/dL (3.4-5.0); BUN/Creatinine Ratio 16.4; Bilirubin, Total 0.2 mg/dL (0.2-1.0); Calcium 9.9 mg/dL (8.5-10.1); Magnesium 1.6 mg/dL (1.6-2.6); Potassium 4.1 mmol/L (3.5-5.1); Total Protein 6.5 g/dL (6.4-8.2)
[2017-10-15] MEDS ORDERED: ENOXAPARIN SOD 80 MG/0.8ML SYRINGE SC ONE (13:45)
[2017-10-15] MEDS ORDERED: ONDANSETRON HCL 4 MG/2 ML VIAL IV PRN (15:00)
[2017-10-15] MEDS ORDERED: CLOPIDOGREL BISULFATE 75 MG TAB PO ONE (15:30)
[2017-10-15] MEDS ORDERED: PANTOPRAZOLE 40 MG TAB PO ONE (15:30)
[2017-10-15] MEDS ORDERED: ASPirin 81 mg TAB PO ONE (15:30)
[2017-10-15 16:29] VITALS: BP 141/73
[2017-10-15] MEDS: HYDROcodone-ACET 5/325MG TAB PO PRN (17:32)
[2017-10-15] MEDS: ATORVASTATIN 20 MG TAB PO SCH (21:43)
[2017-10-15 22:00] VITALS: BP 137/69
[2017-10-15] MEDS ORDERED: COLCHICINE 0.6 MG TAB PO SCH (22:00)
[2017-10-16 05:00] VITALS: BP 133/90
[2017-10-16] MEDS: LEVOTHYROXINE SODIUM 50 MCG TAB PO SCH (06:13)
[2017-10-16 06:55] LABS: Basophils # (auto) 0 uL; Eosinophils # (auto) 0.1 uL; Lymphocytes # (auto) 0.6 uL
[2017-10-16 06:57] LABS: Basophils % (auto) 0.2 % (0.0-2.0); Eosinophils % (auto) 1.1 % (0.0-7.0); Hematocrit 37.1 % (36.0-46.0); Hemoglobin 12.6 g/dL (12.2-16.2); Lymphocytes % (auto) 10.1 % (10.0-50.0); Mean Corpuscular Volume 102.9 fL (80.0-100.0); Monocytes # (auto) 0.3 uL; Monocytes % (auto) 5.9 % (0.0-12.0); Neutrophils # (auto) 4.8 uL; Neutrophils % (auto) 82.7 % (37.0-80.0); Nucleated Red Blood Cells % 0.1 %; Platelet Count (auto) 216 10^3/uL (140-450); Red Blood Cells 3.61 10^6/uL (4.0-5.20); Red Cell Distribution Width 12.6 % (11.8-14.3); White Blood Cell 5.8 10^3/uL (4.4-10.8)
[2017-10-16 07:19] LABS: Calcium 10.2 mg/dL (8.5-10.1)
[2017-10-16 08:30] VITALS: BP 139/77
[2017-10-16] MEDS ORDERED: PANTOPRAZOLE 40 MG TAB PO SCH (10:00)
[2017-10-16] MEDS ORDERED: CLOPIDOGREL BISULFATE 75 MG TAB PO SCH (10:00)
[2017-10-16] MEDS: COLCHICINE 0.6 MG TAB PO SCH ×2 (10:14→21:50)
[2017-10-16] MEDS: ASPirin 81 mg TAB PO SCH (10:15)
[2017-10-16] MEDS ORDERED: LORazepam 0.5 MG TAB PO PRN (10:45)
[2017-10-16] MEDS ORDERED: ALPRAZolam 0.5 MG TAB PO PRN (12:15)
[2017-10-16 13:00] VITALS: BP 122/73
[2017-10-16] MEDS ORDERED: ACETAMINOPHEN 325 MG TAB PO PRN (16:30)
[2017-10-16] MEDS ORDERED: ACETAMINOPHEN 650 MG RECT SUPP PR PRN (16:30)
[2017-10-16] MEDS: D5W/SOD CHLO 0.9% 1,000 ML IV SCH (16:51)
[2017-10-16 17:00] VITALS: BP 108/67
[2017-10-16 17:15] LABS: Hematocrit 34.4 % (36.0-46.0); Hemoglobin 11.8 g/dL (12.2-16.2)
[2017-10-16] MEDS: ONDANSETRON HCL 4 MG/2 ML VIAL IV PRN (20:07)
[2017-10-16] MEDS: HYDROcodone-ACET 5/325MG TAB PO PRN (20:08)
[2017-10-16] MEDS: ATORVASTATIN 20 MG TAB PO SCH (21:50)
[2017-10-16 22:00] VITALS: BP 129/79
[2017-10-16 22:24] LABS: Hematocrit 32.8 % (36.0-46.0); Hemoglobin 10.9 g/dL (12.2-16.2)
[2017-10-17] MEDS: ONDANSETRON HCL 4 MG/2 ML VIAL IV PRN ×3 (01:40→21:28)
[2017-10-17] MEDS ORDERED: LORazepam 2MG/ML-1ML VIAL IV PRN ×2 (02:30→10:45)
[2017-10-17] MEDS ORDERED: MEPERIDINE HCL (25 MG/ML) 1ML VIAL IM ONE (03:00)
[2017-10-17] MEDS: D5W/SOD CHLO 0.9% 1,000 ML IV SCH ×3 (03:11→21:39)
[2017-10-17 05:00] VITALS: BP 134/80
[2017-10-17] MEDS ORDERED: MEPERIDINE HCL (25 MG/ML) 1ML VIAL IV ONE ×2 (05:30)
[2017-10-17] MEDS: LEVOTHYROXINE SODIUM 50 MCG TAB PO SCH (06:35)
[2017-10-17 07:53] LABS: Basophils # (auto) 0 uL; Basophils % (auto) 0.1 % (0.0-2.0); Eosinophils # (auto) 0 uL; Hemoglobin 9.9 g/dL (12.2-16.2); Red Blood Cells 2.83 10^6/uL (4.0-5.20)
[2017-10-17 07:54] LABS: Hematocrit 29.2 % (36.0-46.0); Lymphocytes # (auto) 1.1 uL; Lymphocytes % (auto) 10.2 % (10.0-50.0); Mean Corpuscular Hemoglobin 35.1 pg (28.0-32.0); Mean Corpuscular Hgb Conc. 33.9 g/dL (32.0-36.0); Mean Corpuscular Volume 103.5 fL (80.0-100.0); Monocytes # (auto) 0.8 uL; Neutrophils # (auto) 8.5 uL; Neutrophils % (auto) 81.7 % (37.0-80.0); Platelet Count (auto) 288 10^3/uL (140-450); Red Cell Distribution Width 12.7 % (11.8-14.3); White Blood Cell 10.4 10^3/uL (4.4-10.8)
[2017-10-17 08:10] LABS: BUN/Creatinine Ratio 39.7; Calcium 10.1 mg/dL (8.5-10.1); Magnesium 1.5 mg/dL (1.6-2.6); Potassium 3.8 mmol/L (3.5-5.1)
[2017-10-17 09:00] VITALS: BP 148/99
[2017-10-17] MEDS: ASPirin 81 mg TAB PO SCH (10:00)
[2017-10-17] MEDS: COLCHICINE 0.6 MG TAB PO SCH ×2 (10:00→21:29)
[2017-10-17] MEDS: PANTOPRAZOLE 40 MG/10 ML VIAL IV SCH ×2 (10:45→21:39)
[2017-10-17] MEDS ORDERED: HYDROmorphone HCL 2 MG/ML VL IV PRN (10:45)
[2017-10-17 13:00] VITALS: BP 152/98
[2017-10-17] MEDS ORDERED: LIDOCAINE 2% (LOCAL ANESTH.) PF 5ml SDV ONE (14:26)
[2017-10-17] MEDS: NALBUPHINE HCL 10 MG/1ml INJECTION IV PRN ×2 (16:26→20:55)
[2017-10-17 17:00] VITALS: BP 153/97
[2017-10-17] MEDS ORDERED: MAGNESIUM SULFATE 1GM/100ML 100 ML IV ONE (17:43)
[2017-10-17] MEDS: MAGNESIUM SULFATE 1GM/100ML 100 ML IV SCH ×2 (18:02→19:38)
[2017-10-17 22:00] VITALS: BP 139/89
[2017-10-18] MEDS: ONDANSETRON HCL 4 MG/2 ML VIAL IV PRN ×3 (03:49→20:18)
[2017-10-18 05:00] VITALS: BP 156/82
[2017-10-18] MEDS: LEVOTHYROXINE SODIUM 50 MCG TAB PO SCH (05:03)
[2017-10-18 06:23] LABS: Basophils # (auto) 0 uL; Basophils % (auto) 0.1 % (0.0-2.0); Eosinophils # (auto) 0 uL; Hemoglobin 8.8 g/dL (12.2-16.2); Mean Corpuscular Volume 102.9 fL (80.0-100.0); Monocytes # (auto) 0.9 uL; Platelet Count (auto) 287 10^3/uL (140-450)
[2017-10-18 06:25] LABS: Hematocrit 25.8 % (36.0-46.0); Lymphocytes # (auto) 1.1 uL; Mean Corpuscular Hemoglobin 34.9 pg (28.0-32.0); Mean Corpuscular Hgb Conc. 33.9 g/dL (32.0-36.0); Monocytes % (auto) 7.4 % (0.0-12.0); Neutrophils # (auto) 10.5 uL; Neutrophils % (auto) 83.5 % (37.0-80.0); Red Blood Cells 2.51 10^6/uL (4.0-5.20); Red Cell Distribution Width 12.8 % (11.8-14.3); White Blood Cell 12.6 10^3/uL (4.4-10.8)
[2017-10-18 06:34] LABS: INR 1.04 (0.9-1.15); Partial Thromboplastin Time 19.9 sec (23.78-33.04); Prothrombin Time 11.1 sec (9.27-12.13)
[2017-10-18 06:40] LABS: BUN/Creatinine Ratio 34.3; Calcium 10.5 mg/dL (8.5-10.1); Potassium 3.3 mmol/L (3.5-5.1)
[2017-10-18 08:00] VITALS: BP 152/74
[2017-10-18] MEDS: D5W/SOD CHLO 0.9% 1,000 ML IV SCH (08:15)
[2017-10-18] MEDS ORDERED: D5W/SOD CHL 0.9%/KCL 40MEQ 1,000 ML IV ONE (08:15)
[2017-10-18] MEDS: COLCHICINE 0.6 MG TAB PO SCH ×2 (08:42→21:13)
[2017-10-18] MEDS: PANTOPRAZOLE 40 MG/10 ML VIAL IV SCH ×2 (08:58→21:13)
[2017-10-18 09:00] VITALS: BP_SYST 152; BP_SYST 154; BP_DIAS 74; BP_DIAS 84
[2017-10-18] MEDS ORDERED: MIDAZOLAM HCL 1MG/1ML-2 ML VIAL ONE (09:39)
[2017-10-18] MEDS ORDERED: fentaNYL CITRATE 100 MCG/2 ML VL ONE (09:42)
[2017-10-18] MEDS ORDERED: PROPOFOL 10 MG/ML 20 ML IV ONE (09:48)
[2017-10-18] MEDS ORDERED: LIDOCAINE HCL 2 %PF INJ 10ML AMP IJ ONE (09:48)
[2017-10-18] MEDS ORDERED: ONDANSETRON HCL 4 MG/2 ML VIAL IV ONE (10:15)
[2017-10-18 13:00] VITALS: BP 154/84
[2017-10-18] MEDS: LORazepam 2MG/ML-1ML VIAL IV PRN ×2 (14:40→21:08)
[2017-10-18 17:35] VITALS: BP 144/91
[2017-10-18] MEDS ORDERED: NITROGLYCERIN 0.4 MG SL TAB SL PRN (21:45)
[2017-10-18 22:00] VITALS: BP 149/79
[2017-10-19] MEDS: ONDANSETRON HCL 4 MG/2 ML VIAL IV PRN (01:36)
[2017-10-19] MEDS: LORazepam 2MG/ML-1ML VIAL IV PRN ×3 (03:48→18:24)
[2017-10-19 05:00] VITALS: BP 147/82
[2017-10-19] MEDS: LEVOTHYROXINE SODIUM 50 MCG TAB PO SCH (06:37)
[2017-10-19 07:26] LABS: Basophils # (auto) 0 uL; Basophils % (auto) 0.2 % (0.0-2.0); Eosinophils # (auto) 0.1 uL; Eosinophils % (auto) 0.9 % (0.0-7.0); Hematocrit 25.9 % (36.0-46.0); Hemoglobin 8.4 g/dL (12.2-16.2); Lymphocytes # (auto) 1.3 uL; Lymphocytes % (auto) 14.1 % (10.0-50.0); Mean Corpuscular Hemoglobin 35.1 pg (28.0-32.0); Mean Corpuscular Hgb Conc. 32.5 g/dL (32.0-36.0); Monocytes # (auto) 0.7 uL; Monocytes % (auto) 7.8 % (0.0-12.0); Neutrophils # (auto) 7.2 uL; Nucleated Red Blood Cells % 0.1 %; Platelet Count (auto) 242 10^3/uL (140-450); Red Cell Distribution Width 13.2 % (11.8-14.3); White Blood Cell 9.4 10^3/uL (4.4-10.8)
[2017-10-19 08:12] LABS: Anion Gap 14 (5-15); BUN/Creatinine Ratio 18.5; Blood Urea Nitrogen 25 mg/dL (7-18); Calcium 10.6 mg/dL (8.5-10.1); Carbon Dioxide 17 mmol/L (21-32); Chloride 108 mmol/L (98-107); GFR African American 51 mL/min; GFR Non-African American 42 mL/min; Glucose 97 mg/dL (74-106); Potassium 3.4 mmol/L (3.5-5.1); Sodium 139 mmol/L (136-145)
[2017-10-19 09:00] VITALS: BP 154/83
[2017-10-19] MEDS: PANTOPRAZOLE 40 MG/10 ML VIAL IV SCH ×2 (09:41→22:04)
[2017-10-19] MEDS: COLCHICINE 0.6 MG TAB PO SCH ×2 (09:42→22:04)
[2017-10-19] MEDS ORDERED: fentaNYL CITRATE 100 MCG/2 ML VL IV ONE (10:00)
[2017-10-19 13:00] VITALS: BP 147/86
[2017-10-19 18:16] VITALS: BP 151/68
[2017-10-19 20:00] VITALS: BP 143/75
[2017-10-19 22:00] VITALS: BP 145/57
[2017-10-20] MEDS: LORazepam 2MG/ML-1ML VIAL IV PRN ×2 (00:47→07:01)
[2017-10-20 05:00] VITALS: BP 134/66
[2017-10-20 07:00] LABS: Basophils # (auto) 0 uL; Eosinophils # (auto) 0.2 uL; Eosinophils % (auto) 3.2 % (0.0-7.0); Hemoglobin 7.5 g/dL (12.2-16.2); Lymphocytes # (auto) 1.5 uL; Neutrophils # (auto) 4.6 uL; Red Blood Cells 2.13 10^6/uL (4.0-5.20)
[2017-10-20] MEDS: LEVOTHYROXINE SODIUM 50 MCG TAB PO SCH (07:01)
[2017-10-20 07:02] LABS: Basophils % (auto) 0.6 % (0.0-2.0); Hematocrit 21.4 % (36.0-46.0); Lymphocytes % (auto) 21.3 % (10.0-50.0); Mean Corpuscular Hemoglobin 35.1 pg (28.0-32.0); Mean Corpuscular Hgb Conc. 34.9 g/dL (32.0-36.0); Mean Corpuscular Volume 100.8 fL (80.0-100.0); Monocytes # (auto) 0.7 uL; Monocytes % (auto) 10.2 % (0.0-12.0); Neutrophils % (auto) 64.7 % (37.0-80.0); Platelet Count (auto) 247 10^3/uL (140-450); Red Cell Distribution Width 12.3 % (11.8-14.3); White Blood Cell 7.1 10^3/uL (4.4-10.8)
[2017-10-20 07:20] LABS: BUN/Creatinine Ratio 13.6; Calcium 10.6 mg/dL (8.5-10.1); Potassium 3.5 mmol/L (3.5-5.1)
[2017-10-20 08:33] VITALS: BP 135/74
[2017-10-20] MEDS: PANTOPRAZOLE 40 MG/10 ML VIAL IV SCH (11:05)
[2017-10-20] MEDS: COLCHICINE 0.6 MG TAB PO SCH (11:06)
[2017-10-20 12:03] VITALS: BP 140/80
[2017-10-20] MEDS ORDERED: SODIUM FERR GLUC 62.5MG/5ML 125 MG in SODIUM CHL 0.9% 100 ML IV ONE (13:30)
[2017-10-20] MEDS ORDERED: ALPRAZolam 0.5 MG TAB PO PRN (13:30)
[2017-10-20] MEDS: HYDROcodone-ACET 5/325MG TAB PO PRN (13:35)
[2017-10-20] MEDS ORDERED: DOCUSATE SOD 100 MG CAP PO SCH (22:00)
[2017-10-21] MEDS ORDERED: SODIUM FERR GLUC 62.5MG/5ML 125 MG in SODIUM CHL 0.9% 100 ML IV ONE (09:00)
== END 2017-10-20 16:25 | disposition left against medical advice (07) | DRG 241 ==
LOC: EDBD 10:35 → ER 10:35 → WEST WING 10:36 → TELE-WESTW 16:04
PROVIDERS: ADMIT Internal Medicine; ATTEND Internal Medicine
PROC: 0DJ08ZZ Inspection of Upper Intestinal Tract, Via Natural or Artificial Opening Endoscopic (ICD-10-PCS; principal; 2017-10-18 09:35)
DX: K29.71 Gastritis, unspecified, with bleeding (principal); I21.4 Non-ST elevation (NSTEMI) myocardial infarction; N17.0 Acute kidney failure with tubular necrosis; I13.0 Hypertensive heart and chronic kidney disease with heart failure and stage 1 through stage 4 chronic kidney disease, or unspecified chronic kidney disease; I95.9 Hypotension, unspecified; I50.32 Chronic diastolic (congestive) heart failure; E44.1 Mild protein-calorie malnutrition; D62 Acute posthemorrhagic anemia; K25.4 Chronic or unspecified gastric ulcer with hemorrhage; K92.0 Hematemesis; N18.3 Chronic kidney disease, stage 3 (moderate); M48.02 Spinal stenosis, cervical region; M25.78 Osteophyte, vertebrae; J44.9 Chronic obstructive pulmonary disease, unspecified; Z68.26 Body mass index [BMI] 26.0-26.9, adult; R00.1 Bradycardia, unspecified; I25.10 Atherosclerotic heart disease of native coronary artery without angina pectoris; Z95.1 Presence of aortocoronary bypass graft; M10.9 Gout, unspecified; E78.5 Hyperlipidemia, unspecified; F32.9 Major depressive disorder, single episode, unspecified; D63.1 Anemia in chronic kidney disease; F17.210 Nicotine dependence, cigarettes, uncomplicated; F41.9 Anxiety disorder, unspecified; K08.9 Disorder of teeth and supporting structures, unspecified; K21.9 Gastro-esophageal reflux disease without esophagitis; K44.9 Diaphragmatic hernia without obstruction or gangrene; M53.82 Other specified dorsopathies, cervical region; M85.80 Other specified disorders of bone density and structure, unspecified site; S00.83XA Contusion of other part of head, initial encounter; Z53.21 Procedure and treatment not carried out due to patient leaving prior to being seen by health care provider; W18.39XA Other fall on same level, initial encounter; Y93.89 Activity, other specified; Y92.89 Other specified places as the place of occurrence of the external cause
CPT/HCPCS: 36415; 70450; 70486; 71045; 72125; 73030; 73502; 80048; 80053; 82962; 83735; 84443; 84484; 85014; 85018; 85025; 85610; 85730; 87081; 93005; 93306; 96372; C9113; J2250; J2405; J2704; J7042